=== PATIENT | female | born 1995 | race African-American/Black ===

== ENCOUNTER 2017-05-02 19:34 | Emergency (ER) | payer OTHER ==
[~2017-05-02] VITALS: Ht 154.9 cm; Wt 163.8 kg
[2017-05-02 19:42] VITALS: BP 146/121
[2017-05-02] MEDS ORDERED: PROAIR HFA8.5 GM (19:44)
== END 2017-05-02 20:41 | disposition home or self-care (01) ==
LOC: M.ERS 19:34
DX: S93.491A Sprain of other ligament of right ankle, initial encounter (principal); I10 Essential (primary) hypertension; E66.01 Morbid (severe) obesity due to excess calories; J45.909 Unspecified asthma, uncomplicated; Z91.010 Allergy to peanuts; X50.1XXA Overexertion from prolonged static or awkward postures, initial encounter; Y93.89 Activity, other specified; Y92.89 Other specified places as the place of occurrence of the external cause; Y99.8 Other external cause status

== ENCOUNTER 2018-06-30 10:21 | Emergency (ER) | payer OTHER ==
[~2018-06-30] VITALS: Ht 180.3 cm; Wt 149.7 kg
[~2018-06-30 10:21] MED LIST: PROAIR HFA8.5 GM
[2018-06-30] MEDS ORDERED: ALBUTEROL2.5 MG/31 INH (10:32)
[2018-06-30 10:58] LABS: URINE BILIRUBIN NEGATIVE (Negative); URINE BLOOD TRACE (Negative); URINE CLARITY CLEAR; URINE COLOR YELLOW; URINE GLUCOSE-RANDOM NEGATIVE (Negative); URINE KETONES NEGATIVE (Negative); URINE LEUKOCYTES-REFLEX 1+ (Negative); URINE NITRITE-REFLEX NEGATIVE (Negative); URINE PROTEIN NEGATIVE (Negative); URINE UROBILINOGEN 0.2 E.U./dl (0.2-1.0)
[2018-06-30 11:29] LABS: BACTERIA-REFLEX 1-9 Few /HPF (None Seen); CASTS None Seen /LPF (None Seen); CRYSTALS None Seen /LPF (None Seen); MUCUS None Seen strn/LPF (None Seen); SQUAMOUS 4-10 Moderate /LPF (0-3); URINE RBC 0-2 Rare /HPF (0-2); URINE WBC-REFLEX 0-5 Rare /HPF (0-5)
[2018-06-30] MEDS ORDERED: IBUPROFEN 800800 MG PO (12:19)
[2018-06-30] MEDS ORDERED: ROBAXIN 750 MG750 M1 PO (12:19)
[2018-06-30] MEDS ORDERED: PREDNISONE 20 M20 M1 PO (12:20)
[2018-06-30 12:30] VITALS: BP 155/77
== END 2018-06-30 12:32 | disposition home or self-care (01) ==
LOC: M.ERS 10:21
PROVIDERS: Nurse Practitioner Family
DX: J45.901 Unspecified asthma with (acute) exacerbation (principal); G43.909 Migraine, unspecified, not intractable, without status migrainosus; M54.42 Lumbago with sciatica, left side; I10 Essential (primary) hypertension; E66.01 Morbid (severe) obesity due to excess calories; Z68.42 Body mass index [BMI] 45.0-49.9, adult; Z91.010 Allergy to peanuts

== ENCOUNTER 2020-05-31 15:14 | Inpatient (IN) | payer OTHER ==
[~2020-05-31] VITALS: Ht 180.3 cm; Wt 149.7 kg
[~2020-05-31 15:14] MED LIST changes: +ALBUTEROL2.5 MG/31 INH; +IBUPROFEN 800800 MG PO; +PREDNISONE 20 M20 M1 PO; +ROBAXIN 750 MG750 M1 PO
[2020-05-31 15:57] LABS: INFLUENZA A ANTIGEN Negative (Negative); INFLUENZA B ANTIGEN Negative (Negative)
[2020-05-31 16:07] LABS: ABSOLUTE BASOPHILS 0.1 thou/uL (0.0-0.2); ABSOLUTE EOSINOPHILS 0.5 thou/uL (0.0-0.7); ABSOLUTE LYMPHOCYTES 1.4 thou/uL (0.8-5.3); ABSOLUTE MONOCYTES 0.7 thou/uL (0.0-1.2); ABSOLUTE NEUTROPHILS 5.9 thou/uL (1.6-8.1); BASOPHILS 0.7 %; EOSINOPHILS 5.3 %; HEMATOCRIT 44.2 % (37.0-47.0); HEMOGLOBIN 14.8 gm/dL (12.0-15.0); LYMPHOCYTES 16.7 %; MCH 29.7 pg (26.0-34.0); MCHC 33.6 g/dL (28.0-37.0); MCV 88.5 fL (80.0-100.0); MONOCYTES 8.2 %; MPV 8.4 fl. (7.2-11.1); NUCLEATED RBCS 0 /100WBC; PLATELET COUNT* 341 thou/uL (150-400); POLYS 69.1 %; WBC 8.6 thou/uL (4.0-11.0)
[2020-05-31 16:16] LABS: CALCIUM 9.1 mg/dL (8.5-10.1); CREATININE 0.8 mg/dL (0.6-1.3)
[2020-05-31 16:20] LABS: ALBUMIN 3.5 g/dL (3.4-5.0); TOTAL BILIRUBIN 0.4 mg/dL (<0.1-1.0); TOTAL PROTEIN 8.8 g/dL (6.4-8.2)
[2020-05-31 20:37] VITALS: BP 162/82
[2020-05-31 21:00] VITALS: BP 141/67
[2020-06-01] VITALS: BP 138/58
[2020-06-01 04:00] VITALS: BP 131/82
[2020-06-01 08:00] VITALS: BP 120/76
--- NOTE | 2020-06-01 09:42 | EKG ---
[place] [address] ELECTROCARDIOGRAM REPORT Name: JOSUÉ DRAPER Room: [address] ADM IN M.R.#: [id number] Admission: 05/31/20 Attend Phys: Srini Land, Discharge: Date of : [birth year] Date of Service: 05/31/20 1529 Report #: [id number] THIS REPORT FOR: //name// 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 : 1995 Requested By: Salvatore Aguilar Order Number: [id number] Ellie MD: Mak Jacobsen Measurements Intervals [place] Rate: 109 P: 70 [place]: 162 QRS: 56 QRSD: 105 T: 55 QT: 328 QTc: 442 Interpretive Statements Sinus tachycardia Borderline Q waves in inferior leads Borderline T wave abnormalities Baseline wander in lead(s) V5 No previous ECG available for comparison Electronically Signed On 06-01-2020 9:42:35 CDT by Mak Jacobsen [email or web address] <ELECTRONICALLY SIGNED> By: Mak aJcobsen MD, [facility] 06/01/20 0942 1529 1529 Mak Jacobsen MD, [facility] /EPI
[2020-06-01 11:07] LABS: BE -1.7 mmol/L (-2 to +3); PCO2 40.5 mmHg (35.0-45.0); PO2 68.3 mmHg (75.0-100.0); pH 7.378 (7.340-7.450)
[2020-06-01 11:45] VITALS: BP 136/74
[2020-06-01 12:19] LABS: ABSOLUTE LYMPHOCYTES 1.7 thou/uL (0.8-5.3); ABSOLUTE MONOCYTES 0.8 thou/uL (0.0-1.2); ABSOLUTE NEUTROPHILS 10.6 thou/uL (1.6-8.1); BASOPHILS 0.2 %; HEMATOCRIT 44.7 % (37.0-47.0); HEMOGLOBIN 14.6 gm/dL (12.0-15.0); MCHC 32.7 g/dL (28.0-37.0); MCV 88.7 fL (80.0-100.0); MPV 8.3 fl. (7.2-11.1); NUCLEATED RBCS 0 /100WBC; PLATELET COUNT* 401 thou/uL (150-400); POLYS 80.8 %; RBC 5.04 mil/uL (4.20-5.00); RDW-CV 14.1 % (10.5-14.5); WBC 13.1 thou/uL (4.0-11.0)
[2020-06-01 12:32] LABS: ALBUMIN 3.4 g/dL (3.4-5.0); CALCIUM 9.3 mg/dL (8.5-10.1); MAGNESIUM 2.3 mg/dL (1.8-2.4); POTASSIUM 4.4 mmol/L (3.5-5.1); TOTAL BILIRUBIN 0.2 mg/dL (<0.1-1.0)
[2020-06-01 16:48] VITALS: BP 149/83
[2020-06-01 20:00] VITALS: BP 116/59
[2020-06-02] VITALS: BP 107/64
[2020-06-02 04:00] VITALS: BP 124/69
[2020-06-02 04:34] LABS: HEMATOCRIT 44.1 % (37.0-47.0); HEMOGLOBIN 14.3 gm/dL (12.0-15.0); MCH 29.4 pg (26.0-34.0); MCHC 32.5 g/dL (28.0-37.0); MCV 90.6 fL (80.0-100.0); MPV 8.7 fl. (7.2-11.1); NUCLEATED RBCS 0 /100WBC; PLATELET COUNT* 378 thou/uL (150-400); RBC 4.87 mil/uL (4.20-5.00); RDW-CV 14.6 % (10.5-14.5); WBC 11.8 thou/uL (4.0-11.0)
[2020-06-02 04:55] LABS: ALBUMIN 3.5 g/dL (3.4-5.0); CREATININE 0.9 mg/dL (0.6-1.3); MAGNESIUM 2.2 mg/dL (1.8-2.4); PHOSPHORUS* 3.6 mg/dL (2.5-4.9); POTASSIUM 4.7 mmol/L (3.5-5.1); TOTAL BILIRUBIN 0.2 mg/dL (<0.1-1.0)
[2020-06-02 05:32] LABS: ABSOLUTE LYMPHOCYTES 1.1 thou/uL (0.8-5.3); ABSOLUTE MONOCYTES 0.2 thou/uL (0.0-1.2); ABSOLUTE NEUTROPHILS 10.5 thou/uL (1.6-8.1)
[2020-06-02 05:33] LABS: PLATELET ESTIMATE ADEQUATE; TOXIC GRANULATION 1+
[2020-06-02 07:50] LABS: URINE BILIRUBIN NEGATIVE (Negative); URINE BLOOD NEGATIVE (Negative); URINE CLARITY CLEAR; URINE COLOR YELLOW; URINE GLUCOSE-RANDOM NEGATIVE (Negative); URINE KETONES NEGATIVE (Negative); URINE LEUKOCYTES-REFLEX NEGATIVE (Negative); URINE NITRITE-REFLEX NEGATIVE (Negative); URINE PROTEIN 1+ (Negative); URINE SPECIFIC GRAVITY 1.025 (1.005-1.030); URINE UROBILINOGEN 0.2 E.U./dl (0.2-1.0)
[2020-06-02 08:00] VITALS: BP 124/75
[2020-06-02 08:24] LABS: BACTERIA-REFLEX 1-9 Few /HPF (None Seen); CASTS None Seen /LPF (None Seen); CRYSTALS None Seen /LPF (None Seen); SQUAMOUS 0-3 Few /LPF (0-3); URINE RBC 0-2 Rare /HPF (0-2); URINE WBC-REFLEX 0-5 Rare /HPF (0-5)
--- NOTE | 2020-06-02 11:27 | 2DMMODE ---
[place] [address] 2 D/M-MODE ECHOCARDIOGRAM Name: JOSUÉ DRAPER Room: [address] ADM IN .R.#: [id number] Admission: 05/31/20 Attend Phys: Srini Land, Discharge: Date of : [birth year] Date of Service: 06/02/20 1126 Report #: [id number] THIS REPORT FOR: cc: Letitia Braga Maggie M. DO Blick, David R. MD [facility] ~ APPROVED REPORT Study performed: 06/01/2020 13:28:53 EXAM: Comprehensive 2D, Doppler, and color-flow Echocardiogram Patient Location: In-Patient Room #: 200 Status: routine BSA: 2.61 HR: 73 bpm BP: 136/74 mmHg Rhythm: NSR Other Information Study Quality: Good Indications Dyspnea 2D Dimensions IVSd: 13.61 (7-11mm) LVOT Diam: 20.62 (18-24mm) LVDd: 60.38 mm PWd: 10.26 (7-11mm) Ascending Ao: 28.08 (22-36mm) LVDs: 41.42 (25-40mm) Aortic Root: 26.49 mm Volumes Left Atrial Volume (Systole) LA ESV Index: 22.90 mL/m2 Aortic Valve AoV Peak Anjel.: 1.47 m/s AO Peak Gr.: 8.68 mmHg LVOT Max P.29 mmHg AO Mean Gr.: 4.91 mmHg LVOT Mean P.82 mmHg LVOT Max V: 0.91 m/s AO V2 VTI: 23.65 cm LVOT Mean V: 0.63 m/s OS (VTI): 2.09 cm2 LVOT V1 VTI: 14.83 [place] [address] 2 D/M-MODE ECHOCARDIOGRAM Name: JOSUÉ DRAPER Room: [address] IN [facility].#: [id number] Admission: 05/31/20 Attend Phys: Srini Land, Discharge: Date of : 89 Date of Service: 06/02/20 1126 Report #: [id number] TDI Medial E' Anjel.: 0.12 m/s Lateral E' Anjel.: 0.12 m/s Pulmonary Valve PV Peak Anjel.: 1.13 m/s PV Peak Gr.: 5.11 mmHg Left Ventricle The left ventricle is normal size. There is normal LV segmental wall motion. There is normal left ventricular wall thickness. Left ventricular systolic function is normal. The left ventricular ejection fraction is within the normal range. LVEF is 50-55%. The left ventricular diastolic function is normal. Right Ventricle The right ventricle is normal size. The right ventricular systolic function is normal. Atria The left atrium size is normal. The right atrium size is normal. Aortic Valve The aortic valve is normal in structure. No aortic regurgitation is present. There is no aortic valvular stenosis. Mitral Valve The mitral valve is normal in structure. There is no mitral valve regurgitation noted. No evidence of mitral valve stenosis. Tricuspid Valve The tricuspid valve is normal in structure. Unable to assess PA pressure. Trace tricuspid regurgitation. Pulmonic Valve The pulmonary valve is normal in structure. There is no pulmonic valvular regurgitation. Great Vessels The aortic root is normal in size. IVC is normal in size and collapses >50% with inspiration. Pericardium There is no pericardial effusion. <Conclusion> [place] [address] 2 D/M-MODE ECHOCARDIOGRAM Name: JOSUÉ DRAPER Room: [address] IN .Gregor.#: [id number] Admission: 05/31/20 Attend Phys: Srini Land, Discharge: Date of : 89 Date of Service: 06/02/20 1126 Report #: [id number] Left ventricular systolic function is normal. The left ventricular ejection fraction is within the normal range. <ELECTRONICALLY SIGNED> By: Mak Jacobsen MD, [facility] 06/02/20 1126 1126 112 Mak Jacobsen MD, FACC /INF
[2020-06-02 11:29] VITALS: BP 126/79
--- NOTE | 2020-06-02 18:25 | CON ---
[address] [address] CONSULTATION Name: JOSUÉ DRAPER Room: [address] IN M.R.#: [id number] Admission: 05/31/20 Attend Phys: Srini Land MD Discharge: Date of : 89 Report #: [id number] THIS REPORT FOR: cc: Letitia Braga Maggie M. DO Pervez, Adeel MD ~ DATE OF SERVICE: 06/01/2020 CONSULT REQUESTED BY: Srini Land MD INDICATION FOR CONSULTATION: Acute hypoxemic respiratory failure. HISTORY OF PRESENT ILLNESS: A 24-year-old female. She does have a history of bronchial asthma and she does have morbid obesity as well with a body mass index elevated to 46 and she has a clinical history consistent with obstructive sleep apnea, not previously diagnosed. The patient is a lifetime nonsmoker. There is no history of previous cardiac disease. The patient is now admitted with an acute respiratory illness, has been short of breath for the last several days, has had a cough and has been bringing up yellow sputum. She also reports having had a stuffy nose as well as nasal discharge. She says that she did have fevers as well as chills at home. There is mild swelling of lower extremities. There is no calf pain. She has had sleep complaints and daytime sleepiness, which are at baseline. She is not currently complaining of heartburn. She, however, is very hypoxemic, barely oxygenating on 15 liters oxygen via nasal cannula, currently is on a heated high-flow nasal cannula 65% FiO2 with 30 liters flow with this. The O2 saturation has come up to the mid 90s. The patient's chest x-rays on my review do show increase in interstitial infiltrates consistent with COVID-19, other causes of atypical pneumonia as well as a mild increase in pulmonary vascular congestion can also lead to this picture. REVIEW OF SYSTEMS: The patient's review of systems for 12 points is negative except as mentioned above. PAST MEDICAL HISTORY: Bronchial asthma, morbid obesity, body mass index of 46. Clinical history consistent with obstructive sleep apnea, not previously diagnosed, hypertension, cyst removed from armpit. I do not have a previous measure of her left ventricular ejection fraction on previous PFTs available at this time. SOCIAL HISTORY: She is a lifetime nonsmoker, [place] [address] CONSULTATION Name: JOSUÉ DRAPER Room: [address]#: [id number] Admission: 05/31/20 Attend Phys: Srini Land MD Discharge: Date of : [birth year] Report #: [id number] known history of illegal drug use. The patient states that she is sexually active, however, does not feel that there is a possibility of a due to use of contraceptives. ALLERGIES: PEANUTS. CURRENT MEDICATIONS: List in [facility] reviewed. HOME MEDICATIONS: List in [facility] reviewed. FAMILY HISTORY: No pertinent family history. PHYSICAL EXAMINATION: GENERAL: She is alert, awake and oriented. She is short of breath at rest. She has a body mass index of 46. She is morbidly obese. VITAL SIGNS: She is tachycardic, heart rate is 110, blood pressure 136/74. She is saturating 94%. She is on 30 liters of oxygen with a 65% FiO2 via heated high-flow oxygenator. Respiratory rate was in the low 20s at the time of my evaluation. She is afebrile with a temperature of 36.8. HEENT: Head is normocephalic and atraumatic. Pupils are equal. There is no throat erythema. Airway is narrow. Mucous membranes appear to be moist. NECK: Does not show raised JVP, asymmetry, mass or lymph nodes. CHEST: Symmetrical expansion on inspection and palpation. On auscultation, breath sounds are bilaterally equal, but decreased. Expirations are prolonged. There are bilateral expiratory wheezes. HEART: Regular. There is no murmur. ABDOMEN: Soft and nontender. EXTREMITIES: Lower extremities show trace edema, no calf tenderness. SKIN: Dry and intact. NEUROLOGICAL: Moves all extremities bilaterally equally and spontaneously with no focal deficit identified. The patient's lab work is in [facility]. Also, see discussion above. The patient's chest x-ray on my review are consistent with either interstitial bilateral infiltrates or increase in pulmonary vascular congestion or a combination. Her hilar markings are also prominent. ASSESSMENT AND PLAN: 1. Acute hypoxemic respiratory failure as above. My view is that the chest x-rays either show pulmonary edema or interstitial infiltrates. History is more consistent with interstitial infiltrates. At this time frame, COVID-19 will be the most likely explanation. Atypical pneumonia can lead to this picture as well less likely. Also if the patient has pulmonary edema, this will be the picture. However, the patient does not have any risk factors for having a left [address] [address] CONSULTATION Name: JOSUÉ DRAPER Room: [address] IN M.R.#: [id number] Admission: 05/31/20 Attend Phys: Srini Land MD Discharge: Date of : 89 Report #: [id number] ventricular failure and she is only 24 years old. 2. Interstitial pulmonary infiltrates. In addition to continuing corticosteroid as already ordered, we will go ahead and start with remdesivir. For now, I held off on giving her convalescent plasma. However, if her oxygenation does not improve and the COVID-19 PCR is positive, then I will consider the same. We will follow LFTs closely while she is on remdesivir. Meanwhile, we will also cover for other etiologies of interstitial infiltrates. Azithromycin and ceftriaxone are therefore ordered. More cultures and serologies are also ordered. 3. Bronchial asthma exacerbation. I agree with Solu-Medrol, Xopenex as well as Atrovent. We will go ahead and add Singulair as well. 4. Fluid overload. She does have edema. Overall, it does appear to be total body fluid overloaded and unusual presentation of a cardiomyopathy can also give this picture. Therefore, in addition to giving her Lasix, I will go ahead and do an echo. 5. Morbid obesity/suspected obstructive sleep apnea. We will start with BiPAP and AVAPS mode while asleep and p.r.n. 6. Evaluation for thromboembolic phenomena. Appears unlikely as D-dimer is less than 0.19. 7. Deep vein thrombosis prophylaxis. I ordered Lovenox 40 b.i.d. 8. Gastrointestinal prophylaxis. She may also have a component of reflux. We will go ahead and give her Protonix. 9. Clostridium difficile prophylaxis, Lactinex. The patient is critically ill at this time. Total time spent providing critical care to this patient today exceeds 42 minutes. <ELECTRONICALLY SIGNED> By: Tristan Dillard MD 06/02/20 1825 1344 [id number] Dillard MD /nt
[2020-06-02 20:00] VITALS: BP 139/67
[2020-06-03] VITALS (7 sets, daily range): BP systolic 112–151; BP diastolic 51–77
[2020-06-03 04:04] LABS: ABSOLUTE LYMPHOCYTES 1.5 thou/uL (0.8-5.3); ABSOLUTE MONOCYTES 0.3 thou/uL (0.0-1.2); ABSOLUTE NEUTROPHILS 14.6 thou/uL (1.6-8.1); HEMOGLOBIN 13.8 gm/dL (12.0-15.0); LYMPHOCYTES 9.2 %; MCH 28.9 pg (26.0-34.0); MCV 90.4 fL (80.0-100.0); MONOCYTES 2.1 %; MPV 8.5 fl. (7.2-11.1); NUCLEATED RBCS 0 /100WBC; PLATELET COUNT* 366 thou/uL (150-400); POLYS 88.7 %; RBC 4.76 mil/uL (4.20-5.00); RDW-CV 14.3 % (10.5-14.5); WBC 16.5 thou/uL (4.0-11.0)
[2020-06-03 04:12] LABS: ALBUMIN 3.4 g/dL (3.4-5.0); CALCIUM 8.6 mg/dL (8.5-10.1); CREATININE 0.9 mg/dL (0.6-1.3); MAGNESIUM 2.2 mg/dL (1.8-2.4); POTASSIUM 4.5 mmol/L (3.5-5.1); TOTAL BILIRUBIN 0.2 mg/dL (<0.1-1.0); TOTAL PROTEIN 8.6 g/dL (6.4-8.2)
[2020-06-04 04:18] VITALS: BP 119/66
[2020-06-04 08:00] VITALS: BP 132/81
[2020-06-04 13:18] VITALS: BP 117/65
[2020-06-04 16:42] VITALS: BP 146/88
[2020-06-04 20:00] VITALS: BP 108/56
[2020-06-05 00:10] VITALS: BP 144/78
[2020-06-05 04:39] VITALS: BP 131/61
[2020-06-05 08:00] VITALS: BP 148/88
[2020-06-05 11:08] LABS: HEMATOCRIT 43.4 % (37.0-47.0); MCH 28.9 pg (26.0-34.0); MCHC 32.2 g/dL (28.0-37.0); MCV 89.8 fL (80.0-100.0); NUCLEATED RBCS 0 /100WBC; PLATELET COUNT* 372 thou/uL (150-400); RBC 4.84 mil/uL (4.20-5.00); RDW-CV 13.9 % (10.5-14.5); WBC 16.4 thou/uL (4.0-11.0)
[2020-06-05 11:33] LABS: ALBUMIN 3.2 g/dL (3.4-5.0); CALCIUM 9.4 mg/dL (8.5-10.1); CREATININE 0.9 mg/dL (0.6-1.3); POTASSIUM 4.3 mmol/L (3.5-5.1); TOTAL BILIRUBIN 0.2 mg/dL (<0.1-1.0); TOTAL PROTEIN 8.1 g/dL (6.4-8.2)
[2020-06-05 11:41] LABS: ABSOLUTE LYMPHOCYTES 1.1 thou/uL (0.8-5.3); ABSOLUTE MONOCYTES 0.2 thou/uL (0.0-1.2); ABSOLUTE NEUTROPHILS 15.1 thou/uL (1.6-8.1); PLATELET ESTIMATE ADEQUATE
[2020-06-05 20:00] VITALS: BP 99/46
[2020-06-06 04:03] VITALS: BP 124/60
[2020-06-06] MEDS ORDERED: PREDNISONE 10 M10 MG PO (10:45)
[2020-06-06] MEDS ORDERED: SINGULAIR 10 MG10 M1 PO (10:45)
[2020-06-06] MEDS ORDERED: CEFDINIR300 MG PO (10:45)
[2020-06-06 11:45] VITALS: BP 124/60
[2020-06-06 12:05] VITALS: BP 124/60
== END 2020-06-06 14:20 | disposition home or self-care (01) | DRG 177 ==
LOC: M.ERS 15:14 → M.TBA-ER 18:07 → M.2W 19:36
PROVIDERS: Internal Medicine Critical Care Medicine; Physician Assistant; ADMIT Internal Medicine; ATTEND Internal Medicine
DX: J15.6 Pneumonia due to other Gram-negative bacteria (principal); J96.01 Acute respiratory failure with hypoxia; Z68.42 Body mass index [BMI] 45.0-49.9, adult; J45.901 Unspecified asthma with (acute) exacerbation; J45.52 Severe persistent asthma with status asthmaticus; J45.51 Severe persistent asthma with (acute) exacerbation; E87.70 Fluid overload, unspecified; I10 Essential (primary) hypertension; E66.01 Morbid (severe) obesity due to excess calories; Z91.010 Allergy to peanuts